=== PATIENT | female | born 1985 | race Caucasian/White ===

== ENCOUNTER 2018-06-18 17:03 | Emergency (ER) | payer SELFPAY ==
[~2018-06-18] VITALS: Ht 165.1 cm; Wt 77.1 kg
[2018-06-18 17:11] VITALS: Ht 165.1 cm; Wt 77.1 kg
[2018-06-18 18:38] VITALS: BP 106/69
== END 2018-06-18 18:38 | disposition home or self-care (01) ==
LOC: ED 17:03
DX: N12 Tubulo-interstitial nephritis, not specified as acute or chronic (principal)
CPT/HCPCS: J0696

== ENCOUNTER 2018-07-20 21:50 | Emergency (ER) | payer SELFPAY ==
[~2018-07-20] VITALS: Ht 160 cm; Wt 71.2 kg
[2018-07-20 21:57] VITALS: Ht 160 cm; Wt 71.2 kg
[2018-07-20 22:47] LABS: BASOPHIL % 0.8 % (0-2); PLATELET COUNT 215 x10^3mcL (130-400)
[2018-07-20 22:52] LABS: microscopic required? YES; urine erythrocyte 2+ (NEGATIVE)
[2018-07-20 23:07] LABS: CALCIUM 8.7 mg/dL (8.5-10.1); CARBON DIOXIDE 25.9 mmol/L (21-32); CHLORIDE SERUM 102 mmol/L (98-107); CREATININE SERUM 0.6 mg/dL (0.6-1.0); GFR1 > 60 mL/min; GLUCOSE SERUM 82 mg/dL (74-106); POTASSIUM SERUM 3.6 mmol/L (3.5-5.1); RED CELL DISTRIBUTION WIDTH 15.4 % (11.5-14.5); SODIUM SERUM 136 mmol/L (136-145)
[2018-07-20 23:12] LABS: ALBUMIN 3.7 g/dL (3.4-5.0); ALKALINE PHOSPHATASE 114 U/L (46-116); ALT/SGPT 30 U/L (14-59); AST/SGOT 18 U/L (15-37); BILIRUBIN TOTAL 0.3 mg/dL (0.20-1.00); TOTAL PROTEIN, SERUM 8.2 g/dL (6.4-8.2)
[2018-07-21 02:05] VITALS: BP 106/63
== END 2018-07-21 02:05 | disposition home or self-care (01) ==
LOC: ED 21:50
PROVIDERS: Emergency Medicine
DX: N39.0 Urinary tract infection, site not specified (principal); Z98.890 Other specified postprocedural states
CPT/HCPCS: J0696; J1885; J3490

== ENCOUNTER 2020-06-09 15:50 | Emergency (ER) | payer MEDICAID ==
[~2020-06-09] VITALS: Ht 162.6 cm; Wt 78.0 kg
[2020-06-09 16:02] VITALS: Ht 162.6 cm; Wt 78.0 kg
[2020-06-09 17:30] LABS: microscopic required? NO
[2020-06-09 18:14] LABS: UA SPECIFIC GRAVITY >=1.030 (1.005-1.035); urine erythrocyte NEGATIVE (NEGATIVE)
[2020-06-09 18:45] VITALS: BP 106/62
== END 2020-06-09 18:55 | disposition home or self-care (01) ==
LOC: ED 15:50
PROVIDERS: Emergency Medicine
DX: M54.5 Low back pain (principal); R10.31 Right lower quadrant pain; Z98.890 Other specified postprocedural states
CPT/HCPCS: J1100; J1885; Q0092